=== PATIENT | female | born 1970 | race Caucasian/White ===

== ENCOUNTER 2020-12-14 23:40 | Emergency (ER) | payer MEDICARE, OTHER ==
[~2020-12-14 23:40] MED LIST: CLEOCIN HCL150 MG PO
[2020-12-15 00:33] LABS: HEMOGLOBIN 12.4 gm/dl (12.3-15.3); RED BLOOD COUNT 4.28 M/UL (4.00-5.10); WHITE BLOOD COUNT 4.3 K/UL (4.5-11.0)
[2020-12-15 00:52] LABS: BUN/CREATININE RATIO 11 (0-10)
[2020-12-15] MEDS ORDERED: FLONASE 0.05% N16 GM (01:32)
[2020-12-15] MEDS ORDERED: ZYRTEC10 MG PO (01:32)
== END 2020-12-15 01:38 | disposition home or self-care (01) ==
LOC: ER1 23:40
PROVIDERS: Physician Assistant Medical
DX: R53.83 Other fatigue (principal); R00.1 Bradycardia, unspecified; Z90.710 Acquired absence of both cervix and uterus; Z88.1 Allergy status to other antibiotic agents; Z88.5 Allergy status to narcotic agent; Z79.899 Other long term (current) drug therapy
CPT/HCPCS: 80053; 81001; 84439; 84443; 84484; 85025; 93005; 99283

== ENCOUNTER 2021-02-06 11:48 | Emergency (ER) | payer MEDICARE, OTHER ==
[~2021-02-06 11:48] MED LIST changes: +FLONASE 0.05% N16 GM; +ZYRTEC10 MG PO
== END 2021-02-06 15:15 | disposition home or self-care (01) ==
LOC: ER1 11:48
DX: M54.41 Lumbago with sciatica, right side (principal); Z88.1 Allergy status to other antibiotic agents; Z88.5 Allergy status to narcotic agent; Z90.710 Acquired absence of both cervix and uterus
CPT/HCPCS: 99283; J1100; J1885